=== PATIENT | male | born 1965 | race Caucasian/White ===

== ENCOUNTER 2024-04-16 10:10 | Emergency (ER) | payer BC ==
[2024-04-16 10:40] VITALS: BP 135/93; PULSE 92; RESP 18; TEMP 98.3; BMI 23.6
[2024-04-16] MEDS ORDERED: predniSONE 10 MG TABLET (UD) ONE (12:49)
[2024-04-16] MEDS ORDERED: ALBUTEROL SO4 2.5/IPRATROPIUM 0.5 INH SOL 3 ML VIAL.NEB. NEB ONE (12:49)
[2024-04-16] MEDS ORDERED: predniSONE 20 MG TABLET (UD) ONE (12:49)
[2024-04-16] MEDS: predniSONE 20 MG TABLET (UD) PO ONE (12:50)
[2024-04-16] MEDS: ALBUTEROL SO4 2.5/IPRATROPIUM 0.5 INH SOL 3 ML VIAL.NEB. NEB SCH (12:51)
== END 2024-04-16 15:42 | disposition home or self-care (01) ==
LOC: FER 10:10
PROC: 3E0F7GC Introduction of Other Therapeutic Substance into Respiratory Tract, Via Natural or Artificial Opening (ICD-10-PCS; principal; 2024-04-16)
DX: R05.9 Cough, unspecified (principal); R06.02 Shortness of breath; J45.909 Unspecified asthma, uncomplicated; Z20.822 Contact with and (suspected) exposure to COVID-19
CPT/HCPCS: 0241U-QW; 71046-TC-FY; 94640; 99284-25

== ENCOUNTER 2024-07-07 18:33 | Emergency (ER) | payer BC ==
[2024-07-07 19:07] VITALS: BP 116/90; PULSE 90; RESP 20; TEMP 97.5; BMI 25.7
[2024-07-07] MEDS ORDERED: IPRATROPIUM BR 0.02% 0.5 MG/2.5 ML VIAL.NEB. NEB ONE (19:32)
[2024-07-07] MEDS: IPRATROPIUM BR 0.02% 0.5 MG/2.5 ML VIAL.NEB. NEB ONE (19:35)
== END 2024-07-07 20:15 | disposition home or self-care (01) ==
LOC: FER 18:33
PROC: 3E0F7GC Introduction of Other Therapeutic Substance into Respiratory Tract, Via Natural or Artificial Opening (ICD-10-PCS; principal; 2024-07-07)
DX: J45.909 Unspecified asthma, uncomplicated (principal)
CPT/HCPCS: 99283-25

== ENCOUNTER 2024-12-07 23:49 | Emergency (ER) | payer BC ==
[2024-12-07 23:56] VITALS: RESP 18; BMI 24.7
[2024-12-08] MEDS: SODIUM CHLORIDE 1,000 ML IV ONE (01:59)
[2024-12-08] MEDS: morphine CARPU-JECT 2 MG/1 ML DISP.SYRIN IVPUSH ONE ×2 (01:59→02:29)
[2024-12-08 02:41] LABS: HEMATOCRIT 36.3 % (35.4-49); HEMOGLOBIN 11.8 GM/dL (11.7-16.9); MCH 26.5 pg (25.7-33.7); MCHC 32.5 g/dl (32.0-35.9); MEAN CELL VOLUME 81.6 fl (80-96); MEAN PLT VOLUME 9.8 fl (7.5-11.1); PLATELET COUNT 243 10^3/uL (134-434); RBC 4.45 M/mm3 (4.00-5.60); RDW 15.4 % (11.9-15.9)
[2024-12-08 02:53] LABS: POTASSIUM 4.2 mmol/L (3.5-5.1)
[2024-12-08 02:54] LABS: INR 1.06 (0.83-1.09); PROTHROMBIN TIME (PATIENT) 11.5 SEC (9.7-13.0)
[2024-12-08 02:55] LABS: CALCIUM 8.5 mg/dL (8.5-10.1)
[2024-12-08 02:56] LABS: ALBUMIN 3.9 g/dl (3.4-5.0); BLOOD UREA NITROGEN 9.9 mg/dL (7-18)
[2024-12-08 02:59] LABS: CREATININE 0.8 mg/dL (0.55-1.3)
[2024-12-08 03:00] LABS: BILIRUBIN,TOTAL 0.2 mg/dL (0.2-1); TOT PROT 6.5 g/dl (6.4-8.2)
[2024-12-08] MEDS ORDERED: ACETAMINOPHEN INJECTION 100 ML ONE (04:02)
[2024-12-08] MEDS: ACETAMINOPHEN 1000 MG/100 ML BAG IVPB ONE (04:05)
[2024-12-08 06:39] VITALS: BP 111/75; PULSE 64; TEMP 98.3
[2024-12-08] MEDS ORDERED: DOCUSATE SODIUM 100 MG CAPSULE (FP) PO ONE (08:23)
[2024-12-08] MEDS ORDERED: ACETAMINOPHEN 500 MG TABLET (FP) ONE (08:23)
[2024-12-08] MEDS: DOCUSATE NA 100 MG/10 ML UNIT-DOSE CUPS PO ONE (08:35)
[2024-12-08] MEDS: ACETAMINOPHEN 500 MG TABLET (FP) PO ONE (08:35)
== END 2024-12-08 08:51 | disposition home or self-care (01) ==
LOC: FER 23:49
PROC: 3E033NZ Introduction of Analgesics, Hypnotics, Sedatives into Peripheral Vein, Percutaneous Approach (ICD-10-PCS; principal; 2024-12-08)
PROC: 3E033NZ Introduction of Analgesics, Hypnotics, Sedatives into Peripheral Vein, Percutaneous Approach (ICD-10-PCS; 2024-12-08)
PROC: 3E033NZ Introduction of Analgesics, Hypnotics, Sedatives into Peripheral Vein, Percutaneous Approach (ICD-10-PCS; 2024-12-08)
PROC: 3E0337Z Introduction of Electrolytic and Water Balance Substance into Peripheral Vein, Percutaneous Approach (ICD-10-PCS; 2024-12-08)
DX: K59.00 Constipation, unspecified (principal)
CPT/HCPCS: 36415; 74019-TC-FY; 74177-TC; 80053; 85027; 85610; 86850; 86900; 86901; 99285-25; J0131; Q9967